=== PATIENT | female | born 1950 | race Caucasian/White ===

== ENCOUNTER 2017-06-28 11:09 | Emergency (ER) | payer OTHER ==
[~2017-06-28] VITALS: Ht 149.9 cm; Wt 81.7 kg
[~2017-06-28 11:09] MED LIST: ABILIFY10 MG PO; ACETAMINOPHEN-1 EAC1 PO; ALAVERT10 MG; ALPRAZOLAM 0.50.5 M1 PO; ANTIFUNGAL15 G1; ARTIFICIAL TEA1 EAC1 OP; BACTRIM DS TAB1 EACH PO; BENTYL20 MG; BENTYL20 MG PO; CALCIUM 1,0001 EACH; CALCIUM 1,0001 EACH PO; CALCIUM 600 +1 EAC1 PO; CARAFATE 1 GM TA1 G1; CARAFATE 1 GM TA1 G1 PO; CARAFATE 1 GM TA1 GM PO; CEFACLOR ER500 MG PO; CHERATUSSIN AC118 ML PO; CIPROFLOXACIN500 M1 PO; CLARITIN10 M2 PO; CLARITIN10 MG PO; CLONAZEPAM 1 MG1 M1 PO; CLOTRIMAZOLE 1%15 G1 TOP; CLOTRIMAZOLE 1%15 GM; CORTISPORIN EAR10 ML OT; CROLOM 4% OPTH SO4 % OP; CYCLOBENZAPRINE5 MG PO; CYMBALT; CYMBALTA60 MG; CYMBALTA60 MG PO; D-20002000 UNIT; D-20002000 UNIT PO; DELTASONE20 MG PO; DESYREL50 MG; DESYREL50 MG PO; DICLOFENAC-MIS1 EAC1 PO; DIFLUCAN150 MG PO; DUONEB 2.5-0.5 M3 ML INH; ELMIRON 100 MG100 M1 PO; ERYTHROMYCIN E3.5 G3 OPHTHALMIC; ESCITALOPRAM OX20 MG PO; EYE; FIORICET 50-301 EACH PO; FISH OIL 1,0001 EAC5 PO; FISHOIL; FLEXERIL PO; FOSAMAX 10 MG10 MG; FOSAMAX 70 MG T70 MG PO; FUROSEMIDE 20 M20 MG; GABAPENTIN100 MG; GABAPENTIN100 MG PO; GLUCOSAMIN-CHO1 EACH; GLUCOSAMIN-CHO1 EACH PO; GUAIFENESIN ER600 MG PO; HYDROCHLOROTHIA25 M1; HYDROCHLOROTHIA25 M1 PO; HYDROCHLOROTHIA25 M2 PO; HYDROCODON-ACE1 EAC7 PO; HYDROCODON-ACE1 EACH PO; HYDROCODONE-AP1 EAC6 PO; IBUPROFEN 800800 M1 PO; K-DUR 20 MEQ T20 MEQ PO; K-DUR10 MEQ PO; KEFLEX500 MG PO; LAXATIVE DIETA500 MG; LEVAQUIN 500 M500 M2 PO; LISINOPRIL10 MG PO; LORATIDINE 10 M10 M1 PO; MOBIC15 MG; MOBIC15 MG PO; NAPROSYN500 MG PO; NEBULIZER MISCELL; NEXIUM 40 MG CA40 M1 PO; NEXIUM40 MG PO; NIZORAL120 ML; NORCO 10-325 T1 EACH PO; NORCO 5-325 TA1 EACH PO; NORCO 7.5-3251 EACH; NORCO 7.5-3251 EACH PO; NORVASC5 MG PO; NYSTATIN1 EA10 TOP; NYSTATIN15 GM; NYSTATIN15 GM VAG; ONDANSETRON HCL4 M2 PO; ONDANSETRON HCL4 M3 PO; OXYCODONE HCL 55 MG PO; PERCOCET 10-321 EACH PO; PERCOCET 5-3251 EACH PO; PERCOCET PO; PHILLIPS500 MG PO; POTASSIUM20 PO; PREDNISONE 10 M10 M1 PO; PREDNISONE 10 M10 MG PO; PREDNISONE 20 M20 M1 PO; PREDNISONE 20 M20 MG PO; PRENATAL; PRINIVIL20 MG PO; PROAIR HFA8.5 GM INH; PROAIR HFA8.5 GM PO; PROTONIX40 M1 PO; PYRIDIUM200 MG PO; QUETIAPINE FUMA25 MG PO; ROBAXIN 750 MG750 M1 PO; SEROQUEL 25 MG25 M1 PO; SEROQUEL 50 MG50 MG PO; SIMVASTATIN40 MG PO; TESSALON PERLE100 MG PO; TIZANIDINE HCL4 M1 PO; TIZANIDINE HCL4 MG PO; TOBRAMYCIN SULFA5 ML OPHTHALMIC; TRAMADOL 50 MG50 MG PO; TRAZODONE PO; TUSSIONEX PENN473 ML PO; VENTOLIN HFA 1818 GM INH; VERTICALM25 MG PO; VICODIN 5-3001 EACH PO; XANAX 0.5 MG0.5 M1; XANAX 0.5 MG0.5 MG; XANAX 0.5 MG0.5 MG PO; XANAX 1 MG TABLE1 MG PO; XANAX1 MG PO; XARELTO15 MG PO; XARELTO20 MG PO; ZANTAC 150MG T150 MG PO; ZESTRIL20 MG; ZOFRAN ODT4 MG DISSOLVE; ZOFRAN ODT4 MG PO; ZOFRAN ODT4 MG SUBLING; [UNRECOGNIZED DRUG - OTHER]; [UNRECOGNIZED DRUG - OTHER]; [UNRECOGNIZED DRUG - REMARK]; elmiron
[2017-06-28 12:02] LABS: URINE BILIRUBIN NEGATIVE (Negative); URINE BLOOD NEGATIVE (Negative); URINE CLARITY CLEAR; URINE COLOR YELLOW; URINE GLUCOSE-RANDOM NEGATIVE (Negative); URINE KETONES NEGATIVE (Negative); URINE LEUKOCYTES-REFLEX NEGATIVE (Negative); URINE NITRITE-REFLEX NEGATIVE (Negative); URINE PROTEIN NEGATIVE (Negative); URINE UROBILINOGEN 0.2 E.U./dl (0.2-1.0)
[2017-06-28 12:03] LABS: ABSOLUTE BASOPHILS 0.1 thou/uL (0.0-0.2); ABSOLUTE EOSINOPHILS 0.1 thou/uL (0.0-0.7); ABSOLUTE LYMPHOCYTES 2.8 thou/uL (0.8-5.3); ABSOLUTE MONOCYTES 0.5 thou/uL (0.0-1.2); BASOPHILS 0.9 %; EOSINOPHILS 1.5 %; HEMATOCRIT 46.7 % (37.0-47.0); HEMOGLOBIN 15.5 gm/dL (12.0-15.0); LYMPHOCYTES 43.3 %; MCH 30.2 pg (26.0-34.0); MCHC 33.2 g/dL (28.0-37.0); MCV 90.8 fL (80.0-100.0); MONOCYTES 8.3 %; MPV 8.1 fl. (7.2-11.1); NUCLEATED RBCS 0 /100WBC; PLATELET COUNT* 256 thou/uL (150-400); RBC 5.14 mil/uL (4.20-5.00); RDW-CV 14.6 % (10.5-14.5); WBC 6.4 thou/uL (4.0-11.0)
[2017-06-28 12:12] LABS: ANION GAP 7 mmol/L (7-16); BUN 11 mg/dL (7-18); CALCIUM 9.3 mg/dL (8.5-10.1); CHLORIDE 101 mmol/L (98-107); CO2 34 mmol/L (21-32); CREATININE 0.8 mg/dL (0.6-1.3); GLUCOSE 88 mg/dL (70-99); POTASSIUM 3.2 mmol/L (3.5-5.1); SODIUM 142 mmol/L (136-145)
[2017-06-28 12:18] LABS: ALBUMIN 3.8 g/dL (3.4-5.0); ALKALINE PHOSPHATASE 79 U/L (46-116); LIPASE 95 U/L (73-393); SGOT 27 U/L (15-37); SGPT 37 U/L (30-65); TOTAL BILIRUBIN 0.8 mg/dL (<0.1-1.0); TOTAL PROTEIN 7.4 g/dL (6.4-8.2); TROPONIN-I LEVEL <0.06 ng/mL (<0.06)
[2017-06-28] MEDS ORDERED: HYDROCODONE-AP1 EAC6 PO (13:37)
[2017-06-28] MEDS ORDERED: LOPERAMIDE 2 MG2 M1 PO (13:37)
[2017-06-28] MEDS ORDERED: POTASSIUM20 PO (13:37)
[2017-06-28 14:00] VITALS: BP 123/70
== END 2017-06-28 14:03 | disposition home or self-care (01) ==
LOC: M.ERS 11:09
PROVIDERS: Physician Assistant
DX: R10.9 Unspecified abdominal pain (principal); R19.7 Diarrhea, unspecified; R11.0 Nausea; I10 Essential (primary) hypertension; F17.210 Nicotine dependence, cigarettes, uncomplicated; Z87.01 Personal history of pneumonia (recurrent); Z90.49 Acquired absence of other specified parts of digestive tract; Z90.710 Acquired absence of both cervix and uterus; Z88.0 Allergy status to penicillin; Z88.1 Allergy status to other antibiotic agents

== ENCOUNTER 2017-09-22 20:06 | Inpatient (IN) | payer OTHER, MEDICAID ==
[~2017-09-22] VITALS: Ht 149.9 cm; Wt 94.9 kg
[~2017-09-22 20:06] MED LIST changes: +LOPERAMIDE 2 MG2 M1 PO
[2017-09-22 20:08] VITALS: BP 117/72
[2017-09-22 20:40] LABS: ABSOLUTE LYMPHOCYTES 2.1 thou/uL (0.8-5.3); ABSOLUTE MONOCYTES 0.5 thou/uL (0.0-1.2); ABSOLUTE NEUTROPHILS 5.1 thou/uL (1.6-8.1); BASOPHILS 0.5 %; EOSINOPHILS 0.4 %; HEMATOCRIT 42.5 % (37.0-47.0); HEMOGLOBIN 14.2 gm/dL (12.0-15.0); LYMPHOCYTES 27.1 %; MCH 30.1 pg (26.0-34.0); MCHC 33.4 g/dL (28.0-37.0); MCV 90.2 fL (80.0-100.0); MONOCYTES 6.8 %; MPV 8.1 fl. (7.2-11.1); NUCLEATED RBCS 0 /100WBC; PLATELET COUNT* 276 thou/uL (150-400); POLYS 65.2 %; RBC 4.71 mil/uL (4.20-5.00); RDW-CV 13.9 % (10.5-14.5); WBC 7.8 thou/uL (4.0-11.0)
[2017-09-22 20:46] LABS: ANION GAP 5 mmol/L (7-16); BUN 10 mg/dL (7-18); CALCIUM 8.5 mg/dL (8.5-10.1); CHLORIDE 106 mmol/L (98-107); CO2 32 mmol/L (21-32); CREATININE 0.7 mg/dL (0.6-1.3); GLUCOSE 102 mg/dL (70-99); SODIUM 143 mmol/L (136-145)
[2017-09-22 20:47] LABS: POTASSIUM 2.3 mmol/L (3.5-5.1)
[2017-09-22 20:53] LABS: ALBUMIN 3.4 g/dL (3.4-5.0); ALKALINE PHOSPHATASE 56 U/L (46-116); SGOT 14 U/L (15-37); SGPT 19 U/L (30-65); TOTAL PROTEIN 6.4 g/dL (6.4-8.2); TROPONIN-I LEVEL <0.06 ng/mL (<0.06)
[2017-09-22 21:39] LABS: URINE BLOOD NEGATIVE (Negative); URINE CLARITY TURBID; URINE COLOR YELLOW; URINE GLUCOSE-RANDOM NEGATIVE (Negative); URINE KETONES NEGATIVE (Negative); URINE LEUKOCYTES-REFLEX NEGATIVE (Negative); URINE NITRITE-REFLEX NEGATIVE (Negative); URINE PROTEIN 1+ (Negative); URINE SPECIFIC GRAVITY >= 1.030 (1.005-1.030); URINE UROBILINOGEN 0.2 E.U./dl (0.2-1.0)
[2017-09-22 21:42] LABS: ICTOTEST (BILI CONFIRMATORY) Negative (Negative); URINE BILIRUBIN 1+ (Negative)
[2017-09-22 21:48] LABS: MUCUS 4-6 Moderate strn/LPF (None Seen); SQUAMOUS >10 Many /LPF (0-3)
[2017-09-22 21:49] LABS: URINE WBC-REFLEX 0-5 Rare /HPF (0-5)
[2017-09-22 21:50] LABS: CASTS None Seen /LPF (None Seen); CRYSTALS None Seen /LPF (None Seen); URINE RBC 0-2 Rare /HPF (0-2)
[2017-09-22 21:57] LABS: AMP/METHAMP Negative (Negative); BARBITURATES Negative (Negative); BENZODIAZEPINES Negative (Negative); COCAINE Negative (Negative); METHADONE Negative (Negative); OPIATES Negative (Negative); PCP Negative (Negative); THC Negative (Negative)
[2017-09-22 22:50] VITALS: BP 134/65
[2017-09-22 23:37] VITALS: BP 119/48
--- NOTE | 2017-09-22 23:53 | NUR ---
PATIENT ADMITTED TO THE FLOOR FOR FALLS AND POSSIBLE POOR COORDINATION, REPORT WAS PATIENT STUMBLED IN FRONT YARD. UNKNOW IF HIT HEAD BUT CT WAS NEG IN ER. ALERT AND ORIENTED X 4, REQUESTED XANAX, AND NICOTINE PATCH. ORDERS RECEIVED TO START. NO SIGNS OF DISTRESS. NO SOA, CONT. TO MONITOR.
--- NOTE | 2017-09-23 02:46 | NUR ---
PATIENT'S SIGNIFICANT OTHER WAS HERE AT ADMISSION. HOME MED SEROQUEL WAS ON RECONCILATION HISTORY. PATIENT AND FRIEND STATES PATIENT THAT SHE TOOK 50MG OF SEROQUEL. WHEN PLACED CALL WITH STEFANIA REQUESTED PERMISSION TO RESTART ANY HOME MEDS PATIENT WOULD WANT AT . OK'D BY ON-CALL PHYSCIAN, MEDS STARTED.
[2017-09-23 03:30] VITALS: BP 94/41
[2017-09-23 08:00] VITALS: BP 91/43
[2017-09-23 11:03] VITALS: BP 130/33
--- NOTE | 2017-09-23 13:55 | 2DMMODE ---
[place] [address] 2 D/M-MODE ECHOCARDIOGRAM Name: LOREN COVINGTON Room: [address] IN .R.#: [id number] Admission: 09/22/17 Attend Phys: Beto Beatty, Discharge: Date of : 52 Date of Service: 09/23/17 1354 Report #: [id number] THIS REPORT FOR: //name// APPROVED REPORT Study performed: 09/23/2017 10:55:29 EXAM: Comprehensive 2D, Doppler, and color-flow Echocardiogram Patient Location: Bedside BSA: 1.83 HR: 75 bpm BP: 91/43 mmHg Other Information Study Quality: Fair Indications Syncope Chest Pain 2D Dimensions LVEF(%): 61.41 (>50%) IVSd: 13.14 (7-11mm) LVOT Diam: 20.09 (18-24mm) LVDd: 47.21 mm PWd: 12.91 (7-11mm) Ascending Ao: 31.53 (22-36mm) LVDs: 31.66 (25-40mm) Aortic Root: 25.55 mm Scott's LVEF: 61.41 % Volumes Left Atrial Volume (Systole) LA ESV Index: 20.40 mL/m2 Aortic Valve AoV Peak Gerhard.: 1.39 m/s AO Peak Gr.: 7.77 mmHg LVOT Max P.14 mmHg AO Mean Gr.: 4.54 mmHg LVOT Mean P.11 mmHg LVOT Max V: 1.02 m/s AO V2 VTI: 24.87 cm LVOT Mean V: 0.67 m/s KELL (VTI): 2.59 cm2 LVOT V1 VTI: 20.34 cm Mitral Valve E/A Ratio: 0.82 MV Decel. Time: 203.05 [place] [address] 2 D/M-MODE ECHOCARDIOGRAM Name: LOREN COVINGTON Room: [address] IN [facility].#: [id number] Admission: 09/22/17 Attend Phys: Beto Beatty, Discharge: Date of : 52 Date of Service: 09/23/17 1354 Report #: [id number] MV E Max Gerhard.: 0.67 m/s MV PHT: 58.88 ms MVA (PHT): 3.74 cm2 TDI E/Lateral E': 5.58 E/Medial E': 6.70 Medial E' Gerhard.: 0.10 m/s Lateral E' Gerhard.: 0.12 m/s Pulmonary Valve PV Peak Gerhard.: 1.19 m/s PV Peak Gr.: 5.65 mmHg Tricuspid Valve RAP Estimate: 10.00 mmHg TR Peak Gr.: 43.78 mmHg RVSP: 53.78 mmHg PA Pressure: 53.78 mmHg Left Ventricle The left ventricle is normal size. There is normal LV segmental wall motion. Mild concentric left ventricular hypertrophy. Left ventricular systolic function is vigorous, LVEF is >70%. The left ventricular diastolic function is normal. Right Ventricle The right ventricle is normal size. The right ventricular systolic function is normal. Atria The left atrium size is normal. The right atrium size is normal. Aortic Valve The aortic valve is normal in structure. No aortic regurgitation is present. There is no aortic valvular stenosis. Mitral Valve The mitral valve is normal in structure. There is no mitral valve regurgitation noted. No evidence of mitral valve stenosis. Tricuspid Valve The tricuspid valve is normal in structure. Mild tricuspid regurgitation. The RVSP is 35-40 mmHg. Pulmonic Valve The pulmonary valve is normal in structure. There is no pulmonic [place] [address] 2 D/M-MODE ECHOCARDIOGRAM Name: LOREN COVINGTON Room: [address] IN [facility]#: [id number] Admission: 09/22/17 Attend Phys: Beto Beatty, Discharge: Date of : 52 Date of Service: 09/23/17 1354 Report #: [id number] Great Vessels The aortic root is normal in size. IVC is normal in size and collapses with >50% inspiration Pericardium There is no pericardial effusion. <Conclusion> The left ventricle is normal size. Mild concentric left ventricular hypertrophy. Left ventricular systolic function is vigorous, LVEF is >70%. The left ventricular diastolic function is normal. Mild tricuspid regurgitation. The RVSP is 35-40 mmHg. IVC is normal in size and collapses with >50% inspiration <ELECTRONICALLY SIGNED> By: Jaxson Aldridge MD, [facility] 09/23/17 1354 1354 1354 Jaxson Aldridge MD, FACC /INF
--- NOTE | 2017-09-23 14:03 | EKG ---
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
--- NOTE | 2017-09-23 16:09 | NUR ---
Pt out of room at stress test, spoke with sig other at bedside. SO stated that Pt normally resides at home alone, but stated that she has been staying at his home more frequently over the past few months. SO stated that Pt is fairly independent with ADLs, continues to prepare her meals. SO stated that Pt hasn't driven in quite some time, stated that either her dtr or he takes her to and from appts and to run errands. Pt has a cane at home that she can use for mobility, but doesn't use it because she tends to trip over it. SO states that Pt has STM issues. No hx of HH. H[place] of [place] [facility] Following for disposition.
--- NOTE | 2017-09-23 16:35 | NUR ---
ASSUMED PT CARE AT 0730, FULL ASSESMENT DONE CHARTED. PT ORINETED X2-3, CONFUSED AND DROWSY. SHE REMEMBERS FALLING IN THE YARD YESTERDAY. CARDIOLOGY SAW PT, ORDERED STRESS TEST. PTS POTASSIUM BEING REPLACED. FALL PRECATUIONS IN PLACE. PT DOES NOT USE HER CALL LIGHT WHEN NEEDING HELP, ROUNDED ON FREQUENTLY. WILL CONTINUE TO MONITOR.
--- NOTE | 2017-09-23 17:00 | CARDNUC ---
[place] [address] CARDIAC NUCLEAR IMAGING REPORT Name: LOREN COVINGTON Room: [address] IN [facility]#: [id number] Admission: 09/22/17 Attend Phys: Beto Beatty, Discharge: Date of : 52 Date of Service: 09/23/17 1700 Report #: [id number] THIS REPORT FOR: //name// APPROVED REPORT Study performed: 09/23/2017 09:51:00 Indication: Chest pain, Dyspnea, Syncope Patient Location: In-Patient Room #: 221 Stress Tech: Liz Nesbitt Stress Nurse: Merlyn Doe RN Ht: 4 ft 11 in Wt: 197 lbs BSA: 1.83 m2 BMI: 39.78 Medical History Medical History: mi, hypertension Medications: nicotine patch Allergies: lidocaine, prothetazine, clindamycin, penicillin, fentanyl Cardiac Risk Factors: age, hypertension, tobacco, family hx Exercise History: Sedentary Pharmacologic Stress Pharmacologic stress test was performed by injecting Regadenoson 0.4 mg IV push over 10-15 seconds immediately followed by the intravenous injection of 32.0 mCi of Tc-99m Sestamibi. Time of stress injection: 14:50 Date: 09/23/2017 Administration Route: IV Administration Site: Left Arm Heart Rate at time of stress injection: 84 bpm. Gated Stress SPECT was performed 40 minutes after stress injection. The images were gated to evaluate regional wall motion and calculate left ventricular ejection fraction. Prone imaging was performed. Stress Test Details Stress Test: Pharmacologic stress testing performed using 0.4 mg of regadenoson per 5 mL given IV over 10 seconds. Reason for pharmacologic stress test: physical limitation. HR Resting HR: 71 bpm Max Heart Rate (APMHR): 154 [place] [address] CARDIAC NUCLEAR IMAGING REPORT Name: LOREN COVINGTON Room: [address]#: [id number] Admission: 09/22/17 Attend Phys: Beto Beatty, Discharge: Date of : 52 Date of Service: 09/23/17 1700 Report #: [id number] Max HR Achieved: 84 bpm Target HR (85% APMHR): 130 bpm % of APMHR: 54 Recovery HR: 90 bpm BP Resting BP: 112/58 mmHg Max BP: 102/54 mmHg ECG Resting ECG: Sinus Rhythm, RBBB Stress ECG: Sinus Rhythm, RBBB ST Change: None Arrhythmia: None Recovery ECG: Sinus Rhythm, RBBB Recovery ST Change: None Recovery Arrhythmia: None Clinical Reason for Termination: Completed protocol Stress Symptoms: none Exercise duration: 0 min sec Exercise capacity: 1 METs The patient had no significant symptoms with Lexiscan infusion. Stress ECG Conclusion The baseline 12-lead electrocardiogram shows sinus rhythm with right bundle-branch block. There were no significant ST segment changes noted. EKGs obtained during and post Lexiscan infusion show sinus rhythm with no significant ST or T wave changes when compared to baseline. There were no stress-induced arrhythmias. Study Data Post stress, the left ventricular ejection was 56%.. Perfusion Post Lexiscan stress perfusion images show uniform uptake of the radioisotope throughout the myocardium. Wall Motion Normal left ventricular wall motion. Nuclear Conclusion ECG Findings: negative for ischemia Clinical Findings: [place] [address] CARDIAC NUCLEAR IMAGING REPORT Name: LOREN COVINGTON Room: [address] IN [facility]#: [id number] Admission: 09/22/17 Attend Phys: Beto Beatty, Discharge: Date of : 52 Date of Service: 09/23/17 1700 Report #: [id number] Nuclear Findings: negative for ischemia Exercise Capacity: not assessed Left Ventricular Function: normal Post stress myocardial perfusion images show uniform uptake of the radioisotope throughout the myocardium. There were no defects to suggest infarct or ischemia. Left ventricular systolic function was normal on gated studies. This is a low risk study. <Conclusion> The baseline 12-lead electrocardiogram shows sinus rhythm with right bundle-branch block. There were no significant ST segment changes noted. EKGs obtained during and post Lexiscan infusion show sinus rhythm with no significant ST or T wave changes when compared to baseline. There were no stress-induced arrhythmias. <ELECTRONICALLY SIGNED> By: Jaxson Aldridge MD, FACC 09/23/171699 99 99 Jaxson Aldridge MD, FACC /INF
[2017-09-24] VITALS: BP 109/43
[2017-09-24 04:00] VITALS: BP 101/37
--- NOTE | 2017-09-24 05:35 | NUR ---
ASSUMED PT CARE AT 1930. NURSING ASSESSMENT COMPLETED AT START OF SHIFT. PT VOICED NO CONCERS. PT VERY FORGETFUL. HOURLY ROUNDING COMPLETED. FALL PRECAUTIONS IN PLACE. PT TRACING SR WITH BBB THIS SHIFT. IV FLUIDS INFUSING. HYPOKALEMIA RESOLVED. PT PROGRESSING TOWARDS GOALS. CALL LIGHT WITHIN REACH.
[2017-09-24 08:00] VITALS: BP 146/56
[2017-09-24 10:40] VITALS: BP 146/56
[2017-09-24 12:47] VITALS: BP 102/60
--- NOTE | 2017-09-24 14:50 | NUR ---
DPOA NOTARIZED, COPIES TO CHART AND DTR
--- NOTE | 2017-09-24 18:13 | NUR ---
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
[2017-09-24 20:40] VITALS: BP 144/68
[2017-09-25] VITALS: BP 145/85
--- NOTE | 2017-09-25 03:39 | NUR ---
Pt calls frequently for variety of things, ranging from assistance to BR to desiring an answer to a question which may or may not be related to her hospital stay. For instance, pt noted that Jese Kong had and asked what will happen to [employer] as a result. Pt also repeats things multiple times, sometimes 2-3 times during an encounter, though she answers orientation questions appropriately. Reports that she hopes to be discharged today. VSS. Will continue to monitor.
[2017-09-25 04:00] VITALS: BP 113/47
[2017-09-25 05:13] LABS: HEMATOCRIT 37.3 % (37.0-47.0); HEMOGLOBIN 12.3 gm/dL (12.0-15.0); MCH 30.2 pg (26.0-34.0); MCHC 33.1 g/dL (28.0-37.0); MCV 91.3 fL (80.0-100.0); MPV 8.8 fl. (7.2-11.1); RBC 4.08 mil/uL (4.20-5.00); WBC 6.6 thou/uL (4.0-11.0)
[2017-09-25 05:54] LABS: ALBUMIN 2.7 g/dL (3.4-5.0); CALCIUM 7.9 mg/dL (8.5-10.1); CREATININE 0.6 mg/dL (0.6-1.3); MAGNESIUM 2.2 mg/dL (1.8-2.4); POTASSIUM 4.6 mmol/L (3.5-5.1); TOTAL BILIRUBIN 0.4 mg/dL (<0.1-1.0); TOTAL PROTEIN 5.1 g/dL (6.4-8.2)
[2017-09-25 08:15] VITALS: BP 150/83
--- NOTE | 2017-09-25 09:12 | NUR ---
ASSUMED CARE OF PATIENT AFTER REPORT THIS MORNING. PATIENT AWAKE, ALERT, AND ORIENTED APPROPRIATELY BUT FORGETFUL. PHYSICAL ASSESSMENT COMPLETED AND CHARTED. NO COMPLAINTS OF PAIN. VITAL SIGNS STABLE. OXYGEN SATURATION WITHIN NORMAL LIMITS ON ROOM AIR. GIVEN SCHEDULED MEDICATIONS, SEE EMAR FOR DOCUMENTATION. PATIENT TRANSFERS AND AMBULATES WITH ASSISTANCE FROM STAFF. USES CALL LIGHT APPROPRIATELY, WITHIN REACH. CURRENTLY SITTING IN CHAIR AT BEDSIDE. NURSING WILL CONTINUE TO MONITOR.
[2017-09-25 12:53] VITALS: BP 142/85
[2017-09-25 16:29] VITALS: BP 147/70
--- NOTE | 2017-09-25 17:44 | NUR ---
PATIENT HAS BEEN CONFUSED AND VERY FORGETFUL TODAY. ANSWERS ORIENTATION QUESTIONS APPROPRIATELY. SPOKE WITH DAUGHTER ABBE MORENO, AND UPDATED ON PATIENT'S CONDITION AND TESTING. BOYFRIEND IN ROOM AT BEDSIDE. PATIENT CURRENTLY SITTING UP IN CHAIR AT BEDSIDE. DENIES NEEDS AT THIS TIME. CALL LIGHT WITHIN REACH. NURSING WILL CONTINUE TO MONITOR.
[2017-09-25 20:00] VITALS: BP 123/60
[2017-09-26] VITALS (9 sets, daily range): BP systolic 137–165; BP diastolic 71–84
--- NOTE | 2017-09-26 06:11 | NUR ---
Oriented x 3 but very forgetful. She has very short term memory. She is up with assist x 1,walker and gaitbelt to the bathroom. She has occasional stress incontinence,wearing brief. She has voided frequently. She denies pain or nausea, tolerating oral fluids and solids. BM last evening. Vitals stable, heartrate 60-70's, Sinus rythym on the monitor. Since 0300 she has slept well.
--- NOTE | 2017-09-26 17:45 | NUR ---
ASSUMED CARE OF PATIENT AFTER REPORT THIS MORNING. PATIENT AWAKE, ALERT, AND ORIENTED APPROPRIATELY, ALTHOUGH, VERY FORGETFUL. REPEATS HERSELF AND ASKS THE SAME QUESTIONS REPEATEDLY. PHYSICAL ASSESSMENT COMPLETED AND CHARTED. NO COMPLAINTS OF PAIN. VITAL SIGNS STABLE. OXYGEN SATURATION WITHIN NORMAL LIMITS ON ROOM AIR. PATIENT TRANSFERS AND AMBULATES WITH STANDBY ASSISTANCE AND WALKER. HAS WALKED SEVERAL LAPS AROUND THE UNIT THIS AFTERNOON. USES CALL LIGHT APPROPRIATELY, WITHIN REACH. DENIES NEEDS AT THIS TIME. NURSING WILL CONTINUE TO MONITOR.
[2017-09-27] VITALS: BP 121/57
[2017-09-27 03:41] VITALS: BP 159/75
[2017-09-27 04:00] VITALS: BP 128/54
--- NOTE | 2017-09-27 05:06 | NUR ---
ASSUMED PT CARE AT 19:15 REPORT RECEIVED FROM NURSE. PT IS ALERT, AWAKE, ORIENTED X4. VITAL SIGNS WITHIN LIMIT. ASSESSEMENT PERFORMED REFER TO CHART. SINUS RYTHM ON THE MONITOR. IV LINE PATENT SALINE LOCK. RECEIVED ANTIBITICS GIVEN ORDERED. REQUEST EYE LUBRICANT WHICH WAS GIVEN AT ORDERED. PT RECEIVED HER SLEEPING PILL AND SLEEP DURING THE NIGHT .
[2017-09-27 08:00] VITALS: BP 166/75
--- NOTE | 2017-09-27 09:00 | NUR ---
ASSUMED CARE OF PT AFTER REPORT AT 0730. PT A&OX4. VSS. PHYSICAL ASSESSMENT COMPLETED AND CHARTED. PT ON RA. PT IV LINE PATENT AND INTACT. PT IS ON STANDBY ASSIST. EDEMA ON BLE NOTED. DENIES ANY PAIN OR COMPLAIN AT THIS TIME. WILL CONTINUE TO MONITOR PT.
[2017-09-27 11:32] VITALS: BP 144/83
--- NOTE | 2017-09-27 12:15 | NUR ---
Nutrition: Pt seen for BI >40. Pt stated no wt changes. Current wt: ~200#. She stated she had a good appetite. Not interested in nutrition/wt loss education at this time. Pt appears at low risk. Will defer further assessment.
[2017-09-27] MEDS ORDERED: CIPRO250 M1 PO (12:31)
[2017-09-27] MEDS ORDERED: NORVASC5 MG PO (12:31)
[2017-09-27] MEDS ORDERED: NICOTINE TRANSD21 M1 TOP (15:14)
[2017-09-27] MEDS ORDERED: ASPIRIN EC81 M1 PO (15:30)
--- NOTE | 2017-09-27 16:07 | NUR ---
DISCHARGE ORDER RECEIVED. DC INSTRUCTIONS, CARE NOTES, SCRIPTS AND FFUP APPOINTMENTS GIVEN TO PT. PT COMMUNICATES UNDERSTANDING OF DISCHARGE TEACHING. STREET LIGHT REPAIRER AND IV LINE ON RIGHT FOREARM REMOVED. PT DISCHARGE WITH ALL BELONGINGS & PAPERWORK VIA WHEELCHAIR WITH NURSING STAFF TO SIGNIFICANT OTHER OWN PERSONAL VEHICLE. NO PROBLEM TO NOTE AT TIME OF DC.
--- NOTE | 2017-09-27 16:13 | NUR ---
PT'S DAUGHTER CALLED AND UPDATED ON PT'S DISCHARGE PLANS. ALL QUESTIONS AND CONCERNS ANSWERED AT THIS TIME.
== END 2017-09-27 16:14 | disposition home or self-care (01) | DRG 74 ==
LOC: M.ERS 20:06 → M.2W 22:15 → M.TBA-ER 22:15 → M.2W 23:03
PROVIDERS: Family Medicine; Personal Emergency Response Attendant; ADMIT Internal Medicine
DX: G90.8 Other disorders of autonomic nervous system (principal); N39.0 Urinary tract infection, site not specified; E87.6 Hypokalemia; F41.9 Anxiety disorder, unspecified; I10 Essential (primary) hypertension; I25.2 Old myocardial infarction; I25.10 Atherosclerotic heart disease of native coronary artery without angina pectoris; I65.21 Occlusion and stenosis of right carotid artery; E86.0 Dehydration; J44.9 Chronic obstructive pulmonary disease, unspecified; F32.9 Major depressive disorder, single episode, unspecified; F17.210 Nicotine dependence, cigarettes, uncomplicated; W18.39XA Other fall on same level, initial encounter; Z88.1 Allergy status to other antibiotic agents; Z95.5 Presence of coronary angioplasty implant and graft; Z82.5 Family history of asthma and other chronic lower respiratory diseases; Z88.0 Allergy status to penicillin; Z88.8 Allergy status to other drugs, medicaments and biological substances; Z90.49 Acquired absence of other specified parts of digestive tract; Z90.710 Acquired absence of both cervix and uterus; Z98.890 Other specified postprocedural states; Y93.89 Activity, other specified; Y92.096 Garden or yard of other non-institutional residence as the place of occurrence of the external cause; Y99.8 Other external cause status; Z79.2 Long term (current) use of antibiotics; Z79.82 Long term (current) use of aspirin; Z79.899 Other long term (current) drug therapy

== ENCOUNTER 2017-11-30 20:26 | Emergency (ER) | payer OTHER, MEDICAID ==
[~2017-11-30] VITALS: Ht 149.9 cm; Wt 70.8 kg
[~2017-11-30 20:26] MED LIST changes: +ASPIRIN EC81 M1 PO; +CIPRO250 M1 PO; +NICOTINE TRANSD21 M1 TOP
[2017-11-30] MEDS ORDERED: COUMADIN 5 MG TA5 M1 (20:34)
[2017-11-30 20:43] LABS: ABSOLUTE BASOPHILS 0.1 thou/uL (0.0-0.2); ABSOLUTE LYMPHOCYTES 2.2 thou/uL (0.8-5.3); ABSOLUTE MONOCYTES 0.4 thou/uL (0.0-1.2); ABSOLUTE NEUTROPHILS 2.9 thou/uL (1.6-8.1); BASOPHILS 0.9 %; EOSINOPHILS 0.6 %; HEMOGLOBIN 15.2 gm/dL (12.0-15.0); LYMPHOCYTES 39.3 %; MCH 30.6 pg (26.0-34.0); MCHC 33.9 g/dL (28.0-37.0); MCV 90.2 fL (80.0-100.0); MONOCYTES 7.1 %; MPV 8.4 fl. (7.2-11.1); NUCLEATED RBCS 0 /100WBC; PLATELET COUNT* 238 thou/uL (150-400); POLYS 52.1 %; RBC 4.99 mil/uL (4.20-5.00); WBC 5.5 thou/uL (4.0-11.0)
[2017-11-30 20:50] LABS: CALCIUM 8.6 mg/dL (8.5-10.1); CREATININE 0.8 mg/dL (0.6-1.3); POTASSIUM 3.1 mmol/L (3.5-5.1)
[2017-11-30 20:55] LABS: ALBUMIN 3.8 g/dL (3.4-5.0); TOTAL PROTEIN 6.9 g/dL (6.4-8.2)
[2017-11-30 21:03] LABS: APTT 27.6 Seconds (25.0-31.3); INR 1.1; PROTIME 10.3 Seconds (9.20-11.50)
[2017-11-30 21:17] LABS: URINE BILIRUBIN NEGATIVE (Negative); URINE BLOOD NEGATIVE (Negative); URINE CLARITY CLEAR; URINE COLOR YELLOW; URINE GLUCOSE-RANDOM NEGATIVE (Negative); URINE KETONES NEGATIVE (Negative); URINE LEUKOCYTES-REFLEX NEGATIVE (Negative); URINE NITRITE-REFLEX NEGATIVE (Negative); URINE PROTEIN NEGATIVE (Negative); URINE SPECIFIC GRAVITY <= 1.005 (1.005-1.030); URINE UROBILINOGEN 0.2 E.U./dl (0.2-1.0)
[2017-11-30 21:32] LABS: AMP/METHAMP Negative (Negative); BARBITURATES Negative (Negative); BENZODIAZEPINES POSITIVE (Negative); COCAINE Negative (Negative); METHADONE Negative (Negative); OPIATES Negative (Negative); PCP Negative (Negative); THC Negative (Negative)
[2017-11-30 21:44] VITALS: BP 160/73
== END 2017-11-30 21:47 | disposition home or self-care (01) ==
LOC: M.ERS 20:26
PROVIDERS: Personal Emergency Response Attendant
DX: S00.83XA Contusion of other part of head, initial encounter (principal); M54.2 Cervicalgia; I10 Essential (primary) hypertension; F41.9 Anxiety disorder, unspecified; N30.10 Interstitial cystitis (chronic) without hematuria; F17.210 Nicotine dependence, cigarettes, uncomplicated; Z88.0 Allergy status to penicillin; Z88.1 Allergy status to other antibiotic agents; Z88.8 Allergy status to other drugs, medicaments and biological substances; Z79.899 Other long term (current) drug therapy; Z90.710 Acquired absence of both cervix and uterus; Z90.49 Acquired absence of other specified parts of digestive tract; Z87.01 Personal history of pneumonia (recurrent); W01.0XXA Fall on same level from slipping, tripping and stumbling without subsequent striking against object, initial encounter; Y93.89 Activity, other specified; Y92.89 Other specified places as the place of occurrence of the external cause; Y99.8 Other external cause status

== ENCOUNTER 2017-12-03 19:50 | Emergency (ER) | payer OTHER, MEDICAID ==
[~2017-12-03] VITALS: Ht 149.9 cm; Wt 70.8 kg
[~2017-12-03 19:50] MED LIST changes: +COUMADIN 5 MG TA5 M1
[2017-12-03] MEDS ORDERED: HYDROCHLOROTHIA25 M1 (19:59)
[2017-12-03] MEDS ORDERED: SIMVASTATIN (20:00)
[2017-12-03] MEDS ORDERED: [UNRECOGNIZED DRUG - REMARK] (20:00)
[2017-12-03] MEDS ORDERED: PREDNISONE50 MG PO (21:18)
[2017-12-03 21:26] VITALS: BP 120/72
== END 2017-12-03 21:27 | disposition home or self-care (01) ==
LOC: M.ERS 19:50
DX: L53.9 Erythematous condition, unspecified (principal); R11.2 Nausea with vomiting, unspecified; T78.49XA Other allergy, initial encounter; F41.9 Anxiety disorder, unspecified; F32.9 Major depressive disorder, single episode, unspecified; I10 Essential (primary) hypertension; N30.10 Interstitial cystitis (chronic) without hematuria; F17.210 Nicotine dependence, cigarettes, uncomplicated; Z90.49 Acquired absence of other specified parts of digestive tract; Z90.710 Acquired absence of both cervix and uterus; Z87.01 Personal history of pneumonia (recurrent); Z88.0 Allergy status to penicillin; Z88.1 Allergy status to other antibiotic agents; Z88.6 Allergy status to analgesic agent; Z88.8 Allergy status to other drugs, medicaments and biological substances; X58.XXXA Exposure to other specified factors, initial encounter

== ENCOUNTER 2017-12-11 00:02 | Emergency (ER) | payer OTHER, MEDICAID ==
[~2017-12-11] VITALS: Ht 149.9 cm; Wt 92.1 kg
[~2017-12-11 00:02] MED LIST changes: +PREDNISONE50 MG PO; +SIMVASTATIN; +[UNRECOGNIZED DRUG - REMARK]
[2017-12-11 00:25] LABS: ABSOLUTE EOSINOPHILS 0.2 thou/uL (0.0-0.7); ABSOLUTE LYMPHOCYTES 2.8 thou/uL (0.8-5.3); ABSOLUTE MONOCYTES 0.5 thou/uL (0.0-1.2); ABSOLUTE NEUTROPHILS 2.9 thou/uL (1.6-8.1); BASOPHILS 0.6 %; HEMATOCRIT 40.2 % (37.0-47.0); HEMOGLOBIN 13.4 gm/dL (12.0-15.0); LYMPHOCYTES 44.1 %; MCH 30.2 pg (26.0-34.0); MCHC 33.4 g/dL (28.0-37.0); MCV 90.5 fL (80.0-100.0); MONOCYTES 7.1 %; MPV 8.7 fl. (7.2-11.1); NUCLEATED RBCS 0 /100WBC; PLATELET COUNT* 188 thou/uL (150-400); POLYS 45.2 %; RBC 4.44 mil/uL (4.20-5.00); WBC 6.4 thou/uL (4.0-11.0)
[2017-12-11 00:35] LABS: APTT 25.1 Seconds (25.0-31.3); PROTIME 9.8 Seconds (9.20-11.50)
[2017-12-11 00:48] LABS: CALCIUM 8.3 mg/dL (8.5-10.1); CREATININE 0.8 mg/dL (0.6-1.3); POTASSIUM 3.3 mmol/L (3.5-5.1)
[2017-12-11 00:52] LABS: ALBUMIN 3.2 g/dL (3.4-5.0); TOTAL BILIRUBIN 0.5 mg/dL (<0.1-1.0); TOTAL PROTEIN 5.9 g/dL (6.4-8.2)
[2017-12-11 02:29] VITALS: BP 127/44
--- NOTE | 2017-12-13 10:25 | EKG ---
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 12/13/17 1025 0053 005 Alfredo Smith MD, FAC /EPI
== END 2017-12-11 02:20 | disposition home or self-care (01) ==
LOC: M.ERS 00:02
PROVIDERS: Family Medicine
DX: S00.93XA Contusion of unspecified part of head, initial encounter (principal); I10 Essential (primary) hypertension; F17.210 Nicotine dependence, cigarettes, uncomplicated; Z88.0 Allergy status to penicillin; Z88.1 Allergy status to other antibiotic agents; Z88.8 Allergy status to other drugs, medicaments and biological substances; W01.0XXA Fall on same level from slipping, tripping and stumbling without subsequent striking against object, initial encounter; Y93.89 Activity, other specified; Y92.096 Garden or yard of other non-institutional residence as the place of occurrence of the external cause; Y99.8 Other external cause status

== ENCOUNTER → 2018-02-24 | Outpatient (CLI) | payer OTHER, MEDICAID | LOC: M.RAD 15:18 | DX: Z12.31 Encounter for screening mammogram for malignant neoplasm of breast (principal) ==

== ENCOUNTER 2018-07-01 14:21 | Emergency (ER) | payer OTHER, MEDICAID ==
[~2018-07-01] VITALS: Ht 149.9 cm; Wt 99.8 kg
[2018-07-01] MEDS ORDERED: BACTRIM DS TAB1 EAC1 PO (14:55)
[2018-07-01] MEDS ORDERED: ANTIBIOTIC28.4 GM TOP (14:55)
[2018-07-01 15:12] VITALS: BP 136/85
== END 2018-07-01 15:13 | disposition home or self-care (01) ==
LOC: M.ERS 14:21
DX: T24.511A Corrosion of first degree of right thigh, initial encounter (principal); T32.0 Corrosions involving less than 10% of body surface; F32.9 Major depressive disorder, single episode, unspecified; F41.9 Anxiety disorder, unspecified; N30.10 Interstitial cystitis (chronic) without hematuria; Z98.890 Other specified postprocedural states; Z90.710 Acquired absence of both cervix and uterus; Z90.49 Acquired absence of other specified parts of digestive tract; Z87.01 Personal history of pneumonia (recurrent); Z88.0 Allergy status to penicillin; Z88.1 Allergy status to other antibiotic agents; Z88.6 Allergy status to analgesic agent; Z88.8 Allergy status to other drugs, medicaments and biological substances; F17.210 Nicotine dependence, cigarettes, uncomplicated; T52.8X1A Toxic effect of other organic solvents, accidental (unintentional), initial encounter; Y93.89 Activity, other specified; Y92.89 Other specified places as the place of occurrence of the external cause; Y99.8 Other external cause status

== ENCOUNTER 2018-07-04 09:14 | Emergency (ER) | payer OTHER, MEDICAID ==
[~2018-07-04] VITALS: Ht 149.9 cm; Wt 95.7 kg
[~2018-07-04 09:14] MED LIST changes: +ANTIBIOTIC28.4 GM TOP; +BACTRIM DS TAB1 EAC1 PO
[2018-07-04] MEDS ORDERED: ESTRADIOL 1 MG T1 M1 PO (09:26)
[2018-07-04] MEDS ORDERED: NAMENDA 10 MG T10 MG PO (09:27)
[2018-07-04] MEDS ORDERED: ZESTRIL10 MG PO (09:27)
[2018-07-04] MEDS ORDERED: OXYBUTYNIN 5 MG5 M2 PO (09:27)
[2018-07-04] MEDS ORDERED: PRAZOSIN 1 MG CA1 M1 PO (09:27)
[2018-07-04] MEDS ORDERED: NORVASC5 MG PO (09:27)
[2018-07-04] MEDS ORDERED: SEROQUEL 100 M100 M1 PO (09:28)
[2018-07-04 09:47] LABS: ABSOLUTE EOSINOPHILS 0.1 thou/uL (0.0-0.7); ABSOLUTE LYMPHOCYTES 2.4 thou/uL (0.8-5.3); ABSOLUTE MONOCYTES 0.4 thou/uL (0.0-1.2); ABSOLUTE NEUTROPHILS 2.4 thou/uL (1.6-8.1); BASOPHILS 0.8 %; EOSINOPHILS 2.2 %; HEMATOCRIT 43.3 % (37.0-47.0); HEMOGLOBIN 14.3 gm/dL (12.0-15.0); LYMPHOCYTES 45.2 %; MCH 29.8 pg (26.0-34.0); MCV 90.2 fL (80.0-100.0); MONOCYTES 7.2 %; MPV 8.3 fl. (7.2-11.1); NUCLEATED RBCS 0 /100WBC; PLATELET COUNT* 221 thou/uL (150-400); POLYS 44.6 %; WBC 5.4 thou/uL (4.0-11.0)
[2018-07-04 10:07] LABS: ALBUMIN 3.5 g/dL (3.4-5.0); ALKALINE PHOSPHATASE 75 U/L (46-116); ANION GAP 5 mmol/L (7-16); BUN 10 mg/dL (7-18); CALCIUM 8.4 mg/dL (8.5-10.1); CHLORIDE 105 mmol/L (98-107); CO2 31 mmol/L (21-32); CREATININE 0.9 mg/dL (0.6-1.3); GLUCOSE 85 mg/dL (70-99); SGOT 12 U/L (15-37); SGPT 15 U/L (30-65); SODIUM 141 mmol/L (136-145); TOTAL BILIRUBIN 0.6 mg/dL (<0.1-1.0); TOTAL PROTEIN 6.9 g/dL (6.4-8.2); TROPONIN-I LEVEL <0.06 ng/mL (<0.06)
[2018-07-04] MEDS ORDERED: ANTIVERT25 MG PO (10:29)
[2018-07-04 10:58] VITALS: BP 110/58
--- NOTE | 2018-07-04 17:59 | EKG ---
[place] [address] ELECTROCARDIOGRAM REPORT Name: LOREN COVINGTON Room: 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
== END 2018-07-04 11:00 | disposition home or self-care (01) ==
LOC: M.ERS 09:14
PROVIDERS: Emergency Medicine Emergency Medical Services
DX: H81.11 Benign paroxysmal vertigo, right ear (principal); F32.9 Major depressive disorder, single episode, unspecified; F41.9 Anxiety disorder, unspecified; I10 Essential (primary) hypertension; Z88.0 Allergy status to penicillin; Z88.1 Allergy status to other antibiotic agents; Z88.6 Allergy status to analgesic agent; Z88.8 Allergy status to other drugs, medicaments and biological substances; N30.10 Interstitial cystitis (chronic) without hematuria; Z98.890 Other specified postprocedural states; Z90.710 Acquired absence of both cervix and uterus; Z90.49 Acquired absence of other specified parts of digestive tract; Z87.01 Personal history of pneumonia (recurrent)